=== PATIENT | female | born 1985 | race African-American/Black ===

== ENCOUNTER 2017-04-10 20:46 | Emergency (ER) | payer SELFPAY ==
[~2017-04-10] VITALS: Ht 170.2 cm; Wt 85.7 kg
[2017-04-10 21:15] VITALS: BP 138/82
[2017-04-10] MEDS ORDERED: Ketorolac 60mg Inj IM ONE (21:30)
[2017-04-10 22:02] LABS: APPEARANCE,URINE CLEAR; KETONES,URINE NEGATIVE (NEGATIVE); LEUKOCYTE ESTERASE ,URINE NEGATIVE (NEGATIVE); NITRITE,URINE NEGATIVE (NEGATIVE); PH,URINE 6 (4.5-8.0); PROTEIN,URINE NEGATIVE (NEGATIVE); UROBILINOGEN,URINE NORMAL MG/DL (0.0-1.0)
[2017-04-10] MEDS ORDERED: IBUPROFEN600 MG ORAL (22:24)
[2017-04-10 23:17] VITALS: BP 138/82
[2017-04-10 23:18] VITALS: BP 1/1
--- NOTE | 2017-04-16 05:37 | Emergency Room Report ---
History of Present Illness General Chief Complaint: Pain Source: Patient Present Illness HPI Patient is a 32-year-old female who presented after increased low back pain. Patient gradual onset of symptoms. 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 Patient denied any fever. She reported increased pain with supine position and as well as ambulation. She denied bowel or bladder dysfunction. Patient stated that she had been having pain for a long time. Patient stated that she had not been having any nausea or vomiting. Allergies: Coded Allergies: No Known Allergies (Unverified , 04/10/17) Patient History Past Medical History: see triage record Last Menstrual Period: March 04 Now: No Reviewed Nursing Documentation: PMH: Agreed, PSxH: Agreed Nursing Documentation-PMH Past Medical History: No History, Except For Review of Systems All Other Systems: negative except mentioned in HPI Physical Exam Vital Signs Date Time Temp Pulse Resp B/P Pulse Ox O2 Delivery O2 Flow Rate FiO2 04/10/17 20:59 98.1 101 16 138/82 100 Room Air General Appearance: well appearing, no apparent distress, alert, GCS 15 Head: normocephalic, atraumatic ENT: hearing grossly normal, normal voice Neck: full range of motion, supple Respiratory: normal inspection, chest non-tender, lungs clear, no respiratory distress, speaking full sentences Gastrointestinal: normal inspection, non tender, soft Musculoskeletal: normal inspection, back normal, normal range of motion, no calf tenderness Neurologic: normal inspection, alert, oriented x3, responsive, doper III-XII nml as tested, normal gait Psychiatric: mood/affect normal Skin: no rash Medical Decision Making Diagnostic Impression: Primary Impression: Low back pain Additional Impression: Lipoma ER Course Patient presented for back pain. Differential diagnosis included but was not limited to herniated disc, cauda equina syndrome, abdominal aortic aneurysm, perforated ulcer, spinal epidural abscess, spinal stenosis, lumbar fracture, metastatic lesion, pyelonephritis. Patient's benign exam and does not appear to require any further imaging or laboratory testing at this time. The patient appears to have a lipoma for low back. This appears to be chronic and does not appear to require any acute intervention at this time. The patient also appears to have some musculoskeletal low back pain.The patient is advised to follow up with primary care doctor in 1-2 days. Patient is advised to return if any worsening condition or if any changes in status that are concerning. Last Vital Signs Date Time Temp Pulse Resp B/P Pulse Ox O2 Delivery O2 Flow Rate FiO2 04/10/17 23:18 18 1/1 04/10/17 23:17 98.1 100 Room Air 04/10/17 21:15 101 Status: improved Disposition: HOME, SELF-CARE Condition: Stable Scripts Ibuprofen* (MOTRIN*) 600 Mg Tablet 600 MG ORAL Q8H Y for For Pain, #30 TAB 0 Refills Prov: Juan 04/10/17 Patient Instructions: Back Pain, Adult Juan Sun Apr 16, 2017 05:37
== END 2017-04-10 23:19 | disposition home or self-care (01) ==
LOC: EMR 21:15
DX: M54.5 Low back pain (principal); D17.9 Benign lipomatous neoplasm, unspecified
CPT/HCPCS: 81003; 81025; 96372; 99283

== ENCOUNTER 2017-07-05 11:18 | Emergency (ER) | payer MEDICAID ==
[~2017-07-05] VITALS: Ht 170.2 cm; Wt 76.7 kg
[~2017-07-05 11:18] MED LIST: IBUPROFEN600 MG ORAL
--- NOTE | 2017-07-05 14:08 | Diagnostic Imaging Report ---
Indication: Chest trauma. Chest pain Comparison: None 2 views of the chest obtained. Findings: Cardiomediastinal silhouette and pulmonary vascularity are within normal limits for age. The diaphragmatic contour is smooth and costophrenic angles are sharp. No pleural effusions are identified. The bones are unremarkable. Impression: No acute disease
--- NOTE | 2017-07-05 14:10 | Diagnostic Imaging Report ---
Indication: pain Findings: 3 views of the left hand were obtained. There is a comminuted fracture involving the fourth proximal phalange. The fracture. Extend into the MCP joint. Soft tissue swelling noted. Impression: Acute fracture of the fourth proximal phalange
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
[2017-07-05] MEDS ORDERED: TRAMADOL HCL50 MG ORAL (14:22)
[2017-07-05] MEDS ORDERED: IBUPROFEN600 MG ORAL (14:22)
[2017-07-05 14:28] VITALS: BP 1/1
== END 2017-07-05 14:28 | disposition home or self-care (01) ==
LOC: EMR 12:30
DX: S62.615A Displaced fracture of proximal phalanx of left ring finger, initial encounter for closed fracture (principal); S05.12XA Contusion of eyeball and orbital tissues, left eye, initial encounter; S30.0XXA Contusion of lower back and pelvis, initial encounter; Y04.2XXA Assault by strike against or bumped into by another person, initial encounter; Y92.89 Other specified places as the place of occurrence of the external cause; D17.22 Benign lipomatous neoplasm of skin and subcutaneous tissue of left arm; F17.200 Nicotine dependence, unspecified, uncomplicated
CPT/HCPCS: 71020; 99284

== ENCOUNTER 2018-08-12 03:48 | Emergency (ER) | payer SELFPAY ==
[~2018-08-12] VITALS: Ht 170.2 cm; Wt 81.6 kg
[~2018-08-12 03:48] MED LIST changes: +TRAMADOL HCL50 MG ORAL
[2018-08-12] MEDS ORDERED: Bacitracin Oint UD TOPIC ONE ×2 (04:09→04:15)
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
[2018-08-12] MEDS ORDERED: IBUPROFEN600 MG ORAL (04:19)
[2018-08-12] MEDS ORDERED: CEPHALEXIN500 MG ORAL (04:19)
[2018-08-12] MEDS ORDERED: Cephalexin 500mg cap ORAL ONE (04:30)
[2018-08-12] MEDS ORDERED: Bacitracin Oint UD TOPIC SCH (04:30)
[2018-08-12] MEDS ORDERED: Tetanus/Diptheria/Pertussis Vaccine 0.5ml Syr IM ONE (04:30)
[2018-08-12 04:45] VITALS: BP 124/76
== END 2018-08-12 04:45 | disposition home or self-care (01) ==
LOC: EMR 04:17
DX: S61.411A Laceration without foreign body of right hand, initial encounter (principal); X99.1XXA Assault by knife, initial encounter; Y92.89 Other specified places as the place of occurrence of the external cause; Z23 Encounter for immunization
CPT/HCPCS: 90471; 90715; 99283

== ENCOUNTER 2019-10-23 02:04 | Emergency (ER) | payer MEDICAID ==
[~2019-10-23] VITALS: Ht 170.2 cm; Wt 90.7 kg
[~2019-10-23 02:04] MED LIST changes: +CEPHALEXIN500 MG ORAL
--- NOTE | 2019-10-23 02:18 | NUR ---
ED Nurse Note: pt presents to ED c/o L sided back px and L leg numbness/tingling x 1 week. pt has a very large swollen hump on her L lower back that she states is a lymphoma. pt thinks that it is what's causing the numbness and px in her L side. pt reports that it feels like her foot and legs have "fallen asleep." pt does not have decreased ROM or sensation to L foot. pt denies taking anything for her symptoms prior to arrival.
[2019-10-23 02:20] VITALS: BP 140/73
--- NOTE | 2019-10-23 02:43 | Emergency Room Report ---
History of Present Illness General Chief Complaint: Back Pain-No Injury Source: Patient Present Illness HPI This is a 34-year-old female with no past medical history. She presents with chief complaint of back pain and leg pain. Onset for last week or so. She has this mass on her back has been there for a couple of years. It gotten much bigger in the last few months. She was told was a. She said it is hurting her back. Specimen she actually rolled over to the left side. No fever chills. No nausea no vomiting. No drainage. No incontinence of bowel or urine. Pain is 8 out of 10. Worse in certain position. Better with rest. Allergies: Coded Allergies: No Known Allergies (Unverified , 04/10/17) Patient History Past Medical History: see triage record, old chart reviewed Past Surgical History: none Pertinent Family History: none Social History: Denies: smoking Last Menstrual Period: 10/22/19 Now: No Immunizations: other Reviewed Nursing Documentation: PMH: Agreed; PSxH: Agreed Nursing Documentation-PMH Past Medical History: No Stated History Review of Systems Eye: Denies: eye pain, blurred vision ENT: Denies: ear pain, nose congestion, throat swelling Respiratory: Denies: cough, shortness of breath Cardiovascular: Denies: chest pain, palpitations Gastrointestinal: Denies: abdominal pain, diarrhea, nausea, vomiting Musculoskeletal: Reports: back pain; Denies: joint pain Skin: Denies: rash Neurological: Denies: headache, numbness Endocrine: Denies: increased thirst, increased urine Hematologic/Lymphatic: Denies: easy bruising All Other Systems: negative except mentioned in HPI Physical Exam Vital Signs Date Time Temp Pulse Resp B/P (MAP) Pulse Ox O2 Delivery O2 Flow Rate FiO2 10/23/19 02:07 98.1 101 20 140/73 (95) 98 Room Air Vitals normal Sp02 EP Interpretation: reviewed, normal General Appearance: well appearing, no apparent distress, alert Head: normocephalic, atraumatic Eyes: bilateral eye PERRL, bilateral eye EOMI ENT: hearing grossly normal, normal pharynx Neck: full range of motion, supple, no meningismus Respiratory: chest non-tender, lungs clear, normal breath sounds Cardiovascular #1: regular rate, rhythm, no murmur Gastrointestinal: normal bowel sounds, non tender, no mass, no organomegaly, no bruit, non-distended Musculoskeletal: back normal, normal range of motion, gait/station normal, other - She has a large is 20 x 15 cm round cystic mass. No redness or drainage. Psychiatric: mood/affect normal Procedures Additional Procedure Procedure Narrative Procedure: Needle aspiration Indication: Cystic mass Description: Area cleaned with chlorhexidine. Local anesthetic with 1% lidocaine without epinephrine. I injected 1 cc. Under sterile condition, using an 18-gauge needle, try to aspirate the fluctuant area. There was no fluid aspirated. Patient taught procedure without any problem. Medical Decision Making Diagnostic Impression: Primary Impression: Lipoma Qualified Codes: D17.79 - Benign lipomatous neoplasm of other sites Additional Impression: Back pain Qualified Codes: M54.5 - Low back pain ER Course Patient with a large cystic mass on her back. I see no evidence of any abscess. This may be a cystic hygroma versus a lipoma. Unknown if neoplastic process or not. She will need to see a general surgeon for excision and biopsy and pathology sent. I was unsuccessful in my needle aspiration to get any fluid out. I discussed this with the radiologist. He said this is a very large lipoma. No evidence of any abscess. Will discharge home with surgical evaluation referral. CT/MRI/US Diagnostic Results CT/MRI/US Diagnostic Results : Imaging Test Ordered: CT abdomen and pelvis Impression Read by radiologist. She has a 15 x 22 cm lipoma. Last Vital Signs Date Time Temp Pulse Resp B/P (MAP) Pulse Ox O2 Delivery O2 Flow Rate FiO2 10/23/19 02:20 98.1 87 20 140/73 98 Room Air Status: improved Disposition: HOME, SELF-CARE Condition: Stable Scripts Ibuprofen* (MOTRIN*) 600 Mg Tablet 600 MG ORAL THREE TIMES A DAY, #30 TAB 0 Refills Prov: Jorje Tapia MD 10/23/19 Additional Instructions: Follow up with your doctor in 7 days. You may need a referral to see a surgeon. Return if symptoms worsen. Jorje Tapia MD Oct 23, 2019 02:43
[2019-10-23] MEDS ORDERED: Omnipaque-300 100ml vial INJ PRN (02:45)
[2019-10-23] MEDS ORDERED: HYDROcodone/Acetamin 5/325 tab ORAL ONE (02:45)
[2019-10-23 03:21] LABS: BASOPHILS % (AUTO) 1.5 % (0.0-2.0); EOSINOPHILS % (AUTO) 1.6 % (0.0-3.0); HEMATOCRIT 40.9 % (37.0-47.0); HEMOGLOBIN 13.9 G/DL (12.0-16.0); LYMPHOCYTES % (AUTO) 24.2 % (20.0-45.0); MEAN CORPUSCULAR VOLUME 87 FL (80-99); MONOCYTES % (AUTO) 6.5 % (1.0-10.0); NEUTROPHILS % (AUTO) 66.2 % (45.0-75.0); PLATELET COUNT 400 K/UL (150-450); RED BLOOD COUNT 4.69 M/UL (4.20-5.40); RED CELL DISTRIBUTION WIDTH 12.3 % (11.6-14.8); WHITE BLOOD COUNT 11.6 K/UL (4.8-10.8)
[2019-10-23 03:26] LABS: ANION GAP 9 mmol/L (5-15); BLOOD UREA NITROGEN 14 mg/dL (7-18); CALCIUM 8.9 MG/DL (8.5-10.1); CARBON DIOXIDE 26 MMOL/L (21-32); CHLORIDE 105 MMOL/L (98-107); CREATININE 0.7 MG/DL (0.55-1.30); SODIUM 140 MMOL/L (136-145)
[2019-10-23 03:37] LABS: APPEARANCE,URINE CLEAR; BILIRUBIN, URINE NEGATIVE (NEGATIVE); GLUCOSE, URINE (UA) NEGATIVE (NEGATIVE); KETONES,URINE NEGATIVE (NEGATIVE); LEUKOCYTE ESTERASE ,URINE 1+ (NEGATIVE); NITRITE,URINE POSITIVE (NEGATIVE); PH,URINE 6 (4.5-8.0); PROTEIN,URINE NEGATIVE (NEGATIVE); UROBILINOGEN,URINE NORMAL MG/DL (0.0-1.0)
[2019-10-23 03:40] LABS: COLOR,URINE YELLOW
[2019-10-23 05:00] VITALS: BP 137/71
--- NOTE | 2019-10-23 05:03 | NUR ---
ED Nurse Note: pt transported to CT via wheelchair
--- NOTE | 2019-10-23 05:42 | NUR ---
ED Nurse Note: pt returned from CT, will continue to monitor
[2019-10-23] MEDS ORDERED: IBUPROFEN600 MG ORAL (06:41)
--- NOTE | 2019-10-23 06:41 | Diagnostic Imaging Report ---
INDICATION: Abdominal pain TECHNIQUE: Continuous helical transaxial imaging of the abdomen and pelvis was obtained from the lung bases to the pubic symphysis during intravenous contrast administration. Coronal 2-D reformats were also obtained. Study obtained in a Siemens sensation [address] Automatic Exposure Control was utilized. Total Dose length Product (DLP): 1578.[address] Dose Index Volume (CTDIvol): 27.3 mGy COMPARISON: None FINDINGS: Lungs: Reticular densities demonstrated at the left lung base likely atelectasis. This is mild in degree.. Liver: The liver is diffusely hypodense consistent with fatty infiltration. Gallbladder/biliary system: Suspected stones within the gallbladder lumen. There is no wall thickening identified on this study and no biliary ductal dilatation is appreciated.. Spleen: Unremarkable Pancreas: Unremarkable Kidneys: No hydronephrosis identified. Both kidneys enhance symmetrically.. Adrenal glands: Unremarkable Aorta/IVC: Unremarkable Bowel: There is no evidence of bowel obstruction. Bladder: Unremarkable Peritoneum: There is no free fluid. Musculoskeletal: There is a large subcutaneous, predominantly fatty attenuation mass slightly left of midline posterior to the lower lumbar spine consistent with a lipoma. There is a calcific focus noted eccentrically along the right margin of the mass. There are areas of reticulation and septal formation particularly along the right aspect of the mass. The mass is mostly composed of macroscopic fat. The mass has approximate dimensions 22 x 8 x 16 cm in transverse, AP and craniocaudal dimensions respectively. IMPRESSION: Large subcutaneous fatty mass posterior to the lumbar spine measuring 22 x 8 x 16 cm. Some associated calcium noted. Given the size, a well-differentiated liposarcoma is not excludable on the basis of this examination, but a large lipoma is favored given its subcutaneous location, presence of only a few septa and relative nonenhancement. Consider MRI with gadolinium for further evaluation and referral to a specialist. The CT scanner at [facility] is accredited by the [employer] and the scans are performed using dose optimization techniques as appropriate to a performed exam including Automatic Exposure control.
[2019-10-23 06:50] VITALS: BP 140/73
--- NOTE | 2019-10-23 06:50 | NUR ---
ER DISCHARGE NOTE: Patient is cleared to be discharged per ERMD, pt is aox4, on room air, with stable vital signs. pt was given dc and prescription instructions, pt was able to verbalize understanding, pt id band and iv site removed without complications. pt is able to ambulate with steady gait. pt took all belongings.
== END 2019-10-23 06:50 | disposition home or self-care (01) ==
LOC: EMR 02:48
DX: D17.79 Benign lipomatous neoplasm of other sites (principal); M54.5 Low back pain
CPT/HCPCS: 10021; 36415; 74177; 80048; 81001; 81025; 85025; Q9967; Z7502; 99284